=== PATIENT | female | born 1995 | race Caucasian/White ===

== ENCOUNTER 2018-04-30 12:05 | Day surgery (SDC) | payer BC ==
[2018-04-30 13:06] VITALS: BMI 30.4
--- NOTE | 2018-04-30 13:54 | PDOC.LDHP ---
Labor and Delivery H&P Chief complaint: other (Tachycardia) HPI: Ms Morocho is a 23yo female at 32.2wks by LMP who follows with Dr Butler presenting with reported tachycardia up to 168 prior to arrival in ED. First episode occurred 03/08/18, prior to this she had no cardiac problems or tachycardia. Reports chest tightness, shortness of breath, "feels like I'm having a heart attack", and feeling her heart beat strongly during episodes with resolution within 2-3 minutes. Denies LOC. The episodes have become more frequent, originally 3 weeks apart, now she has had 2 episodes today. Not associated with any activities or caffeine. She can be laying in bed, driving or sitting on the couch when they occur. She has hx of panic attacks and had one this month. Reports these feel completely different and her panic attacks are triggered by emotional stressors. Pt reports low caffeine intake ( occasional soda, chocolate), denies herbal medication, or drug use. She has not attempted vasovagal maneuvers to see if it terminates tachycardia. She has seen Dr Medel (Coiled Tubing Supervisor) for the tachycardia. Pt reports normal EKG in clinic 04/20/18. Echo preformed 04/22. Holter monitor was ordered and scheduled to come in 05/04. Per pt, Dr Butler has instructed her to come to ED for heart rate >160. Current gestational age (weeks): 32 (32.2) Due date: 06/23/18 Dating criteria: last menstrual period Grav: 3 Para: 0 (0020) Current complications: other (recurrent tachycardia) Abnormal US findings: No Past Medical History: Pmh: anxiety/depression, celiac disease Surgical: Tonsillectomy 2006, Laproscopic sleeve gastrectomy 2016, cholecystectomy 2017, [place] teeth removed FH: Extensive heart disease on paternal side of family- all >50years. Father- [place]. Current medications: pre-zahira vitamins Previous surgical history: cholecystectomy, other (laproscopic sleeve gastrectomy) Social history: none - Physical Exam General: NAD Heart: RRR Lungs: nonlabored breathing Abdomen: NTTP Extremeties: no edema FHT: category 1 (140/moderate/+ accels/no decels) - OB Labs Blood type: O RH: positive Antibody Screen: negative HIV: negative HEPSAg: negative 1 hour GCT: negative (88) GBS: unknown Rubella: immune - Plan -: Tachycardia - First episode 03/08/18. Follows with Dr Medel, reportedly normal EKG 04/20, echo 04/22- pending results. Holter monitor ordered at last cardiology visit - EKG today NSR rate 76 - Will check BMP, Mg, Ph, TSH, UDS to evaluate for electrolyte abnormalities or other triggering factors - Recommended restriction of caffeine. If pt has another episode to try vasovagal maneuvers including emerging face into cold water, bearing down. If pt continues to have tachycardia recommend following return precautions provided by pt's OB doctor sIUP - NST reactive - Continue routine care Dispo: pending labs, if normal pt can be discharged with close follow up with OB /fermenting cellars receiver and Coiled Tubing Supervisor <Katiuska Dominguez - Last Filed: 04/30/18 14:39> <Pavel Haywood - Last Filed: 05/01/18 07:56> Allergies/Adverse Reactions: Allergies Allergy/AdvReac Type Severity Reaction Status Date / Time gluten Allergy digestive Verified 04/30/18 12:51 problems, swelling, headaches Iodine and Iodide Containing Allergy itch Verified 04/30/18 12:51 Produc levofloxacin [From Levaquin] Allergy doesn't Verified 04/30/18 12:51 want Attending Addendum - Attending Addendum Date/Time: 05/01/18 0846 I personally evaluated the patient and discussed the management with Dr. Dominguez I agree with the History, Examination, Assessment and Plan documented above with any addition or exceptions noted below. All labs normal. Pt d/c'd home. Follow up as scheduled. Getting Holter monitor friday. <Pavel Haywood - Last Filed: 05/01/18 07:56>
[2018-04-30 14:52] LABS: Anion Gap 11 mmol/L (10-20); BUN (Urea Nitrogen) 5 mg/dL (7.0-18.7); Calc. Creatinine Clearance 194 mL/min (70-130); Calcium 8.6 mg/dL (7.8-10.44); Carbon Dioxide 24 mmol/L (22-29); Chloride 104 mmol/L (98-107); Estimated GFR-MDRD Greater than 90; Glucose 78 mg/dL (70-105); Magnesium 1.7 mg/dL (1.6-2.6); Phosphorus 3.8 mg/dL (2.3-4.7); Potassium 4.2 mmol/L (3.5-5.1); Sodium 135 mmol/L (136-145)
[2018-04-30 15:04] LABS: Amphetamine Not Detected (NotDetected); Barbiturates Screen Not Detected (NotDetected); Benzodiazepine Screen Not Detected (NotDetected); Cocaine Metabolite Screen Not Detected (NotDetected); Medtox Control Line Valid? VALID (VALID); Medtox Reader # READER 4; Methadone Not Detected (NotDetected); Methamphetamine Not Detected (NotDetected); Opiate Screen Not Detected (NotDetected); Oxycodone Screen Not Detected (NotDetected); Phencyclidine (PCP) Not Detected (NotDetected); THC/Cannabinoid Screen Not Detected (NotDetected); Tricyclic Screen Not Detected (NotDetected)
== END 2018-04-30 15:18 | disposition home health service (06) ==
LOC: L&D/OP 12:05
PROVIDERS: ATTEND Obstetrics & Gynecology
DX: O99.413 Diseases of the circulatory system complicating pregnancy, third trimester (principal); R00.0 Tachycardia, unspecified; Z3A.32 32 weeks gestation of pregnancy
CPT/HCPCS: 36415; 80048; 80306; 83735; 84100; 84443; 93005; 93010; 99283

== ENCOUNTER 2018-06-23 05:33 | Inpatient (IN) | payer BC ==
--- NOTE | 2018-06-22 14:36 | PDOC.LDHP ---
Labor and Delivery H&P Chief complaint: scheduled induction HPI: 23 y/o WF A2 at 39-40 weeks by LMP 09/21/17 and EDC of 06/28/18... Admitted for primary due to paroxysmal SVT issues this and patient's desire for more controlled setting if this occurs. Was evaluated for recurrent episodes of svt by Dr Medel. Normal echo.. Holter monitored confirmed svt. Was started on toprol 25 mg xl by me that has improved heart rate and decreased episodes.. Patient desired primary c section in order to hafve a more controlled situation. Current gestational age (weeks): 39 Dating criteria: last menstrual period Grav: 3 Para: 0 Current complications: other (PSVT celiac disease) Abnormal US findings: No Past Medical History: celiac disease Current medications: pre-zahira vitamins (toprol 25 mg xl) Previous surgical history: cholecystectomy, other (gastric by pass) Allergies/Adverse Reactions: Allergies Allergy/AdvReac Type Severity Reaction Status Date / Time gluten Allergy digestive Verified 04/30/18 12:51 problems, swelling, headaches Iodine and Iodide Containing Allergy itch Verified 04/30/18 12:51 Produc levofloxacin [From Levaquin] Allergy doesn't Verified 04/30/18 12:51 want Social history: none - Physical Exam General: NAD, resting, breathing through contractions, other Heart: other Lungs: CTAB Abdomen: NTTP FHT: category 1 - Vaginal Exam cm dilated: 0 Effacement: 25% - OB Labs Blood type: O RH: positive Antibody Screen: negative HIV: negative RPR: negative HEPSAg: negative 1 hour GCT: negative GBS: negative Urine drug screen: not done Rubella: immune - Assessment L&D Assessment: scheduled primary section - Plan Plan: admit to L&D, to OR for section
[2018-06-23] MEDS: Lactated Ringer's 1,000 ML IV SCH ×3 (06:10→09:52)
[2018-06-23 06:14] VITALS: BMI 30.9
[2018-06-23] MEDS ORDERED: Promethazine HCl 25 MG/ML VIAL IM PRN ×3 (06:23→08:45)
[2018-06-23] MEDS ORDERED: Bicitra 30 ML UDCUP PO SCH (06:23)
[2018-06-23] MEDS ORDERED: Butorphanol Tartrate 1 MG/ML VIAL SLOW IVP PRN (06:23)
[2018-06-23] MEDS ORDERED: CEFAZOLIN/Water 2 GM/20 ML SYRINGE SLOW IVP SCH (06:23)
[2018-06-23] MEDS ORDERED: Ondansetron PF 4 MG/2 ML Vial IVP PRN ×3 (06:23→10:39)
[2018-06-23 06:28] LABS: Hemoglobin 12.1 g/dL (12.0-16.0); Mean Corpuscular HGB CONC 33.8 g/dL (32.0-36.0); Mean Corpuscular Hemoglobin 30.8 pg (27.0-31.0); Mean Corpuscular Volume 91.2 fL (78.0-98.0); Mean Platelet Volume 7.7 fL (7.4-10.4); Platelet Count 263 thou/uL (130-400); RBC Distribution Width 11.6 % (11.5-14.5); Red Blood Cell (RBC) Count 3.93 mill/uL (4.20-5.40); White Blood Cell (WBC) Count 9.4 thou/uL (4.8-10.8)
[2018-06-23] MEDS ORDERED: CEFAZOLIN 2 GM/50 ML-DEXTROSE 2 GM in Premix Bag 1 BAG IVPB SCH (06:30)
[2018-06-23 07:06] LABS: Syphilis Antibody Nonreactive (Nonreactive); Syphilis Antibody Index 0.07 S/CO (<1.00 Non-Reactive)
[2018-06-23] MEDS ORDERED: Ondansetron PF 4 MG/2 ML Vial ONE ×2 (07:24→12:42)
[2018-06-23] MEDS ORDERED: Oxytocin 10 UNITS/ML VIAL ONE ×2 (07:24→08:22)
[2018-06-23] MEDS ORDERED: ePHEDrine/0.9% NaCl/PF SYRINGE 50 mg/10 ml ONE (07:24)
[2018-06-23] MEDS ORDERED: Morphine PF 1 MG/ML SYR ONE (07:24)
[2018-06-23] MEDS ORDERED: PHENYLEPHRINE-NS 100 MCG/ML 10 ML SYRINGE ONE ×2 (07:32→12:42)
[2018-06-23 08:18] LABS: HBSAg Index 0.19 S/CO (0-0.99); Hep B Surf Ag Non-Reactive S/CO (NonReactive)
[2018-06-23] MEDS ORDERED: Promethazine HCl 25 MG/ML VIAL SLOW IVP PRN (08:44)
[2018-06-23] MEDS ORDERED: Ondansetron HCl/PF 4 MG/2 ML Vial IVP PRN (08:44)
[2018-06-23] MEDS ORDERED: diphenhydrAMINE 50 MG/ML VIAL IVP PRN (08:45)
[2018-06-23] MEDS ORDERED: Naloxone HCl 0.4 mg/ml Vial IV PRN (08:45)
[2018-06-23] MEDS ORDERED: Naloxone HCl 0.4 mg/ml Vial IVP PRN ×2 (08:45)
[2018-06-23] MEDS ORDERED: Communication Order-Pharmacy FS SCH (08:45)
[2018-06-23] MEDS ORDERED: Promethazine HCl 25 MG SUPP PR PRN (08:45)
[2018-06-23] MEDS ORDERED: Eucerin (Mineral Oil/Petrolatum,White) 30 gm Jar TOP PRN (08:45)
[2018-06-23] MEDS ORDERED: Ketorolac Tromethamine 30 MG/ML VIAL ONE (10:05)
[2018-06-23] MEDS: Ketorolac Tromethamine 30 MG/ML VIAL IVP PRN ×3 (10:06→22:02)
[2018-06-23] MEDS ORDERED: Lanolin Ointment 7 GM TUBE TOP PRN (10:39)
[2018-06-23] MEDS ORDERED: NS / Oxytocin 40 units/1000ml 1,000 ML IV SCH (10:39)
[2018-06-23] MEDS ORDERED: diphenhydrAMINE 25 MG CAP PO PRN (10:39)
[2018-06-23] MEDS ORDERED: Bisacodyl 10 MG SUPP PR PRN (10:39)
[2018-06-23] MEDS ORDERED: Misoprostol 200 MCG TAB PR PRN (10:39)
--- NOTE | 2018-06-23 13:56 | OP ---
DATE OF PROCEDURE: 06/23/2018 PREOPERATIVE DIAGNOSES: 1. This is a 23-year-old white female G3, P0, A2, 39 to 40 weeks gestation. 2. History of paroxysmal supraventricular tachycardia episodic during this . 3. Desires primary section due to unpredictability of her supraventricular tachycardia. POSTOPERATIVE DIAGNOSES: 1. This is a 23-year-old white female G3, P0, A2, 39 to 40 weeks gestation. 2. History of paroxysmal supraventricular tachycardia episodic during this . 3. Desires primary section due to unpredictability of her supraventricular tachycardia. PROCEDURE PERFORMED: Primary low transverse section without extension. COMIC ARTIST SURGEONS: Alisa Franco MD and Disha Stack PA-C. ESTIMATED BLOOD LOSS: 500 mL. COMPLICATIONS: None. COUNTS: Correct x2. ANTIBIOTICS: 2 g Ancef on-call to OR. ANESTHESIA: Spinal block. FINDINGS: 1. Vigorous male , Apgars 8 and 8. weight 7 pounds 6 ounces. 2. Clear amniotic fluid noted. 3. Normal-appearing fallopian tubes, uterus, ovaries, and clear urine present in Eller catheter postprocedure. DISPOSITION: Recovery room, stable. DESCRIPTION OF PROCEDURE: The patient previously received informed consent in regard to surgery. She was taken back to the operating room, where she received a spinal block without complications, placed in supine position, prepped and draped in usual sterile fashion. A Pfannenstiel incision was made in the lower abdomen and it was carried down the fascia. Fascia was nicked in the midline. Fascial incision was extended bilaterally using curved Palmer scissors. Rectus muscle bellies were then divided in the midline. Peritoneal cavity was entered. Homer O retractor was then placed. A bladder flap was then created in usual fashion. 2 cm hysterotomy incision was made in the lower uterine segment and this was extended via finger fractionation. The baby was delivered in vertex presentation. Mouth and nares of the infant bulb-suctioned on the abdomen. The cord was doubly clamped and cut, and handed to the wig maker in attendance, Dr. Miller. Usual cord blood was obtained. The placenta was manually extracted. Uterus was externalized laparotomy sponge. Hysterotomy incision was then closed in a running locking fashion with #1 Monocryl suture. Good hemostasis was noted. The pelvis was irrigated and suctioned. Homer O retractor was removed after hemostasis was confirmed. The rectus muscle bellies were noted to be hemostatic prior to fascial closure. The fascia was closed with 0 PDS suture x2 in a running continuous fashion. Subcutaneous tissue was irrigated, noted to be hemostatic, was approximated with a running 3-0 plain gut. The skin was then closed with a subcuticular stitch and Dermabond. The surgery was terminated. No anesthetic or surgical complications. Job ID: [id number]
[2018-06-23] MEDS: Ibuprofen 800 MG TAB PO SCH ×2 (14:17→23:45)
[2018-06-23] MEDS ORDERED: HYDROcodone/Acetaminophen 5/325 mg Tablet PO PRN ×2 (20:45)
[2018-06-23] MEDS: Docusate Calcium (SURFAK) 240 MG CAP PO SCH (21:17)
[2018-06-24] MEDS ORDERED: Sodium Chloride 0.9% 10 ML ONE ×3 (01:40→05:54)
[2018-06-24] MEDS: Ketorolac Tromethamine 30 MG/ML VIAL IVP PRN (05:46)
[2018-06-24] MEDS: Ibuprofen 800 MG TAB PO SCH ×3 (06:56→22:19)
[2018-06-24 07:42] LABS: Hemoglobin 9.1 g/dL (12.0-16.0); Mean Corpuscular HGB CONC 33.6 g/dL (32.0-36.0); Mean Corpuscular Hemoglobin 31.2 pg (27.0-31.0); Mean Corpuscular Volume 92.9 fL (78.0-98.0); Mean Platelet Volume 7.2 fL (7.4-10.4); Platelet Count 190 thou/uL (130-400); RBC Distribution Width 11.4 % (11.5-14.5); Red Blood Cell (RBC) Count 2.92 mill/uL (4.20-5.40); White Blood Cell (WBC) Count 9.1 thou/uL (4.8-10.8)
--- NOTE | 2018-06-24 08:14 | PDOC.PP ---
Post Progress Note Post Day #: 1 Subjective: Baby may have pneumonia. PO intake tolerated: yes Flatus: yes Ambulation: yes Vital Signs (12 hours) Temp Pulse Resp BP Pulse Ox 06/24/18 05:30 97.5 F L 67 18 93/65 06/24/18 01:15 97.8 F 70 18 101/60 06/23/18 22:00 18 06/23/18 20:47 97.7 F 71 16 96/63 100 Weight Weight 186 lb - Physical Examination Cardiovascular: no m/r/g, RRR Abdominal: + bowel sounds, no distention, appropriately TTP Result Diagrams: 06/24/18 07:33 Additional Labs: Post Labs Blood Type O POSITIVE 06/23/18 06:05 Hep Bs Antigen Non-Reactive S/CO (NonReactive) 06/23/18 06:05 - Assessment/Plan post op day 1 from primary c section for PSVT. No tachycardia.Recovering well from surgical stand point. routine care. toprol 25 mg xl/d....
[2018-06-24] MEDS ORDERED: Adacel (T-DAP) 0.5 ML SYRINGE IM ONE (09:00)
[2018-06-24] MEDS: Prenatal Vitamin 1 TAB PO SCH (09:55)
[2018-06-24] MEDS: Docusate Calcium (SURFAK) 240 MG CAP PO SCH ×2 (09:55→22:18)
[2018-06-24] MEDS: traMADol HCl 50 MG TAB PO PRN ×3 (09:55→22:18)
[2018-06-24] MEDS: Simethicone Chewable 80 MG TAB PO PRN ×2 (09:58→20:19)
[2018-06-25] MEDS: traMADol HCl 50 MG TAB PO PRN ×4 (04:28→22:33)
[2018-06-25] MEDS: Ibuprofen 800 MG TAB PO SCH ×3 (06:17→22:33)
[2018-06-25] MEDS: Simethicone Chewable 80 MG TAB PO PRN (06:19)
--- NOTE | 2018-06-25 08:27 | PDOC.PP ---
Post Progress Note Post Day #: 2 PO intake tolerated: yes Flatus: yes Ambulation: yes Vital Signs (12 hours) Temp Pulse Resp BP Pulse Ox 06/25/18 08:21 98.1 F 79 20 99/58 L 98 06/25/18 05:05 70 18 107/72 96 06/25/18 01:20 97.7 F 74 20 111/75 06/24/18 20:32 97.7 F 75 16 107/65 99 Weight Weight 186 lb - Physical Examination Abdominal: + bowel sounds, lochia, no distention, appropriately TTP Result Diagrams: 06/24/18 07:33 Additional Labs: Post Labs Blood Type O POSITIVE 06/23/18 06:05 Hep Bs Antigen Non-Reactive S/CO (NonReactive) 06/23/18 06:05 - Assessment/Plan post op day 2-normal pulse throughout. no psvt issues. plan for discharge in AM. Work on today.
[2018-06-25] MEDS: Docusate Calcium (SURFAK) 240 MG CAP PO SCH ×2 (09:07→22:32)
[2018-06-25] MEDS: Prenatal Vitamin 1 TAB PO SCH (09:07)
[2018-06-26] MEDS: traMADol HCl 50 MG TAB PO PRN ×2 (05:10→11:34)
[2018-06-26] MEDS: Ibuprofen 800 MG TAB PO SCH ×2 (06:19→14:03)
--- NOTE | 2018-06-26 07:51 | PDOC.PP ---
Post Progress Note Post Day #: 3 Subjective: Feels well. No tachycardia. PO intake tolerated: yes Flatus: yes Ambulation: yes Vital Signs (12 hours) Temp Pulse Resp BP Pulse Ox 06/25/18 20:40 98.1 F 70 16 117/74 98 Weight Weight 186 lb - Physical Examination Abdominal: + bowel sounds, lochia, no distention, appropriately TTP Result Diagrams: 06/24/18 07:33 Additional Labs: Post Labs Blood Type O POSITIVE 06/23/18 06:05 Hep Bs Antigen Non-Reactive S/CO (NonReactive) 06/23/18 06:05 - Assessment/Plan Doing well. Ready for discharge. Follow up in 6 weeks. Will start 12.5 mg toprol daily..
[2018-06-26 08:20] VITALS: BP 94/61; TEMP 98.5
[2018-06-26] MEDS: Docusate Calcium (SURFAK) 240 MG CAP PO SCH (08:58)
[2018-06-26] MEDS: Prenatal Vitamin 1 TAB PO SCH (08:58)
== END 2018-06-26 15:45 | disposition home or self-care (01) | DRG 787 ==
LOC: L&D 05:33 → 3SW 12:22
PROVIDERS: ADMIT Obstetrics & Gynecology; ATTEND Obstetrics & Gynecology
PROC: 10D00Z1 Extraction of Products of Conception, Low, Open Approach (ICD-10-PCS; principal; 2018-06-23)
DX: O99.42 Diseases of the circulatory system complicating childbirth (principal); I47.1 Supraventricular tachycardia; Z3A.39 39 weeks gestation of pregnancy; Z37.0 Single live birth; Z90.49 Acquired absence of other specified parts of digestive tract; Z98.84 Bariatric surgery status; Z88.1 Allergy status to other antibiotic agents; Z91.041 Radiographic dye allergy status
CPT/HCPCS: 36415; 51702; 85027; 86780; 86850; 86900; 86901; 87340; J1200; J1885; J2274; J2405; J2550; J2590

== ENCOUNTER → 2019-10-03 | Day surgery (SDC) | payer BC ==
[~2019-10-03] MED LIST: hydrALAZINE 20 MG/ML VIAL SLOW IVP PRN
[2019-10-03 19:30] VITALS: BP 103/66; TEMP 97.7; BMI 27.5
[2019-10-03 19:59] LABS: Bilirubin Negative (Negative); Blood, Urine Negative (Negative); Clarity Clear (Clear); Glucose, Urine (Dipstick) Normal (Negative); Leukocyte Negative Leu/uL (Negative); Mucous/LPF 3+ LPF (<2+); Nitrite Negative (Negative); Protein, Urine (Dipstick) 50 mg/dL (Neg-Trace); RBC/HPF 0-3 HPF (0-3); Renal Epithelial 0-3 HPF (None Seen); Squamous Epithelial 0-3 HPF (0-3); WBC/HPF 0-3 HPF (0-3)
[2019-10-03 20:10] LABS: Bacteria/HPF 1+ HPF (None Seen)
[2019-10-03 20:11] LABS: Urine Culture Reflex Yes Yes
--- NOTE | 2019-10-03 21:17 | PRG ---
DATE OF SERVICE: 10/03/2019 TIME OF SERVICE: 2049. PRESENTING COMPLAINT: Lower abdominal pain at 22 weeks gestation. HISTORY OF PRESENT ILLNESS: Ms. Morocho is a 24-year-old 4, para 1, AB 2, at 22 weeks, sees Dr. Whatley. She has previous section, status post abdominoplasty. She reports 3-4 days of suprapubic pain that is worsened. She reports small urinary volumes. She denies leakage of fluid. She denies bleeding. She reports movement. ENGINEERING SPECIALIST HISTORY: x1, SAB x2. PAST MEDICAL HISTORY: Significant for history of obesity. PAST SURGICAL HISTORY: Significant for obesity surgery as well as abdominoplasty. MEDICATIONS: vitamins. ALLERGIES: IODINE AND GLUTEN. SOCIAL HISTORY: Denies tobacco, alcohol, or drug use. FAMILY HISTORY: Noncontributory. REVIEW OF SYSTEMS: Noncontributory. PHYSICAL EXAMINATION: GENERAL: White female in no acute distress. VITAL SIGNS: Temperature 98.5, respirations 18, pulse 86, blood pressure 110/72. HEENT: Within normal limits. LUNGS: Clear to auscultation bilaterally. HEART: Regular rate and rhythm. ABDOMEN: Soft. She does have palpable tenderness suprapubically in the midline. She has no CVA tenderness. Vulva without lesions. Vagina without discharge. Cervix is closed, long, and high on bimanual with a nontender uterus. EXTREMITIES: No clubbing, cyanosis, or edema. LABORATORY DATA: Urinalysis reveals 50 protein, trace ketones, 1+ bacteria, 3+ mucus, no rbc's or wbc's. Urine culture was reflexed. IMPRESSION: Probable urinary tract infection complicated by p.o. dehydration. PLAN: Discussed with the patient plan. We will discharge home. I gave the patient prescription for 7 days of Macrodantin. She is to follow up with Dr. Whatley. Also going to pickler helper Azo-[employer] at the pharmacy and p.o. hydrate. If symptoms worsen, will re-present to Labor and Delivery. Job ID: [id number]
== END ==
LOC: L&D/OP 18:36
PROVIDERS: ATTEND Obstetrics & Gynecology
DX: O99.89 Other specified diseases and conditions complicating pregnancy, childbirth and the puerperium (principal); R10.30 Lower abdominal pain, unspecified; O99.282 Endocrine, nutritional and metabolic diseases complicating pregnancy, second trimester; E86.0 Dehydration; O34.219 Maternal care for unspecified type scar from previous cesarean delivery; Z3A.22 22 weeks gestation of pregnancy; Z88.1 Allergy status to other antibiotic agents; Z88.5 Allergy status to narcotic agent; Z91.018 Allergy to other foods; Z91.041 Radiographic dye allergy status
CPT/HCPCS: 81001; 87086

== ENCOUNTER → 2020-01-21 | Outpatient (CLI) | payer BC, OTHER ==
[2020-01-22 12:28] LABS: SARS-CoV-2 MS2 Positive; SARS-CoV-2 N Gene Negative; SARS-CoV-2 S Gene Negative; SARS-CoV-2 by NAA Not Detected (NotDetected); SARS-CoV-2 orf1ab Negative
== END ==
LOC: LABBT 08:00
PROVIDERS: ATTEND Obstetrics & Gynecology
DX: Z36.89 Encounter for other specified antenatal screening (principal); Z20.828 Contact with and (suspected) exposure to other viral communicable diseases
CPT/HCPCS: 87635; U0003

== ENCOUNTER → 2020-01-28 | Outpatient (CLI) | payer BC, OTHER ==
[2020-01-29 14:11] LABS: SARS-CoV-2 MS2 Positive; SARS-CoV-2 N Gene Negative; SARS-CoV-2 S Gene Negative; SARS-CoV-2 by NAA Not Detected (NotDetected); SARS-CoV-2 orf1ab Negative
== END ==
LOC: LABBT 08:00
PROVIDERS: ATTEND Obstetrics & Gynecology
DX: Z36.89 Encounter for other specified antenatal screening (principal); Z20.828 Contact with and (suspected) exposure to other viral communicable diseases
CPT/HCPCS: 87635; U0003